=== PATIENT | male | born 1955 | race Caucasian/White ===

== ENCOUNTER 2017-11-16 00:57 | Inpatient (IN) ==
[2017-11-16] MEDS ORDERED: predniSONE 20 MG TABLET PO ONE (01:33)
[2017-11-16] MEDS ORDERED: Ipratropium/Albuterol Neb 3 ML IH ONE (01:34)
[2017-11-16] MEDS ORDERED: Azithromycin 250 MG TABLET PO ONE (01:35)
[2017-11-16 01:58] LABS: Basophils # 0.1 K/mcL (0.0-0.2); Basophils % 0.7 %; Eosinophils # 0.2 K/mcL (0.0-0.6); Eosinophils % 1.7 %; Hematocrit 43.5 % (37.5-50.1); Hemoglobin 14.7 g/dL (12.9-16.9); Immature Granulocytes % 0.4 % (0-4); Lymphocytes # 1.1 K/mcL (0.6-4.6); Lymphocytes % 8.7 %; Mean Corpuscular HGB Conc 33.8 g/dL (31.6-35.5); Mean Corpuscular Hemoglobin 31.9 pg (28.0-33.3); Mean Corpuscular Volume 94.4 fL (83.0-100.0); Mean Platelet Volume 10.1 fL (9.4-12.4); Monocytes # 1.3 K/mcL (0.0-1.3); Neutrophils # 9.5 K/mcL (1.6-8.9); Platelet Count 221 K/mcL (140-400); Red Blood Count 4.61 M/mcL (4.19-5.50); Red Cell Distribution Width 12.5 % (11.5-14.5); Segmented Neutrophils % 77.5 %
--- NOTE | 2017-11-16 01:58 | Emergency Department Note ---
Disposition Clinical Impression: Acute exacerbation of chronic obstructive airways disease Disposition: Admitted As Inpatient Condition: Good Time of Disposition: 03:05 SOB [facility] - General Chief Complaint: ED Shortness of Breath/Dyspnea Stated Complaint: Dyspnea Time Seen by Provider: 11/16/17 01:08 Source: patient Limitations: no limitations Nursing Notes Reviewed: Yes Vital Signs Reviewed: Yes - History of Present Illness 62-year-old male presents to the emergency department complaining of shortness of breath. Patient does have history of COPD he says he has had a cough and shortness of breath recently. Patient states he has had no fevers or nausea or vomiting. He said he has had no purulent sputum. He patient states he does not use any oxygen has inhalers at home does not have any nebulizers has never had to be intubated for COPD. patient is not having any other complaints including headache, neck pain, blurry vision, back pain, chest pain, abdominal pain, pain with urination, changes in bowel movements, pain or tenderness in the arms or legs, generalized weakness, fevers, nausea or vomiting. - Related Data Previous Rx's Medication Instructions Recorded Docusate [Colace] 100 mg PO BID PRN #20 capsule 12/24/15 OxyCODONE/APAP 5/325 [Percocet 1 each PO Q6HR PRN #30 tablet 12/24/15 5/325 MG] Albuterol Sulfate [Albuterol 2 puff IH Q4HR #1 hfa.aer.ad 01/21/17 Inhaler] Azithromycin [Zithromax] 250 mg PO DAILY #4 tablet 11/16/17 predniSONE [Prednisone] 50 mg PO DAILY #5 tablet 11/16/17 Allergies Allergy/AdvReac Type Severity Reaction Status Date / Time No Known Allergies Allergy Verified 11/16/17 00:58 Review of Systems: 10 point review of systems done and negative unless otherwise stated in history of present illness. All systems ED: reviewed and negative except as stated. Review of Systems: As Per [facility] Past Medical History - Past Medical History Attestation: Yes The following information was validated with the patient. Medical history: Reports: no medical history Surgical history: Reports: other Psychiatric history: Reports: no psych history - Social History Smoking Status: Current every day smoker Smokeless Tobacco Status: No Alcohol use: Reports: none Drug use: Reports: none Physical Exam - General Limitations: no limitations General appearance: alert, in no apparent distress - Head Head exam: atraumatic, normocephalic, normal inspection - Eye Eye exam: Present: normal appearance, PERRL, EOMI - ENT ENT exam: normal exam, normal oropharynx, mucous membranes moist - Neck Neck exam: Present: normal inspection, full ROM, trachea midline - Chest Chest inspection: Present: normal inspection, symmetric chest wall rise - Respiratory Respiratory exam: Present: wheezes. Absent: respiratory distress, stridor, accessory muscle use - Cardiovascular Cardiovascular exam: Present: regular rate, normal rhythm, normal heart sounds - Abdominal Exam Abdominal exam: Present: soft, Non-Tender. Absent: tenderness, distention, guarding, rebound, rigidity - Extremities Exam Extremities exam: Present: normal inspection, full ROM, normal capillary refill. Absent: tenderness, pedal edema - Expanded Lower Extremity Exam Neurovascular/Tendon exam: Present: normal capillary refill. Absent: pulse deficit, motor deficit, sensory deficit, tendon deficit - Back Exam Back exam: Present: normal inspection, full ROM. Absent: tenderness, CVA tenderness (R), CVA tenderness (L) - Neurological Exam Neurological exam: Present: alert, oriented X3 - Skin Skin exam: Present: warm, dry, intact, normal color Course Course Narrative: 62-year-old male presents to the ED with difficulty breathing does not history of COPD feels a tightening exacerbation. We will give patient by mouth steroids , azithromycin, triple DuoNeb treatment will get chest x-ray and basic labs. Patient took it this plan. Most likely disposition will be home with steroids and azithromycin. Vital Signs Temperature 97.5 F L 11/16/17 00:59 Pulse Rate 85 11/16/17 00:59 Respiratory Rate 18 11/16/17 00:59 Blood Pressure 119/69 11/16/17 00:59 O2 Sat by Pulse Oximetry 92 11/16/17 00:59 Temperature 97.5 F L 11/16/17 00:59 Pulse Rate 81 11/16/17 03:37 Respiratory Rate 16 11/16/17 03:37 Blood Pressure 104/67 11/16/17 03:37 O2 Sat by Pulse Oximetry 84 11/16/17 03:37 Oxygen Delivery Oxygen Delivery Room Air Shortness of Breath/Dyspnea - [facility] Narrative Medical decision making narrative: 62-year-old male presenting to the emergency department complaining of shortness of breath. He does a history of COPD. After listening to him he did have wheezes bilaterally. We ordered triple duo nebs as well as oral steroids and did give him azithromycin. Patient did have normal labs are no acute findings with those. He also had a normal EKG. Patient also had no acute findings on his chest x-ray. Patient did sound much better after these treatments. Patient was likely is a viral infection exacerbating his COPD. He does have albuterol inhalers at home. Recommend he does use these more often to help with his breathing. Also send him home on 5 days of oral steroid treatment. We will also send him home on azithromycin for 5 days. When he went to discharge the patient we did do a walk test and he dropped to 85 % on room air while walking which is abnormal for him due to the hypoxia we are going to admit to the hospitalist service for COPD exacerbation. As well as hypoxia. I spoke with Dr. Bowen who agreed to admit the patient to their service. Patient is now admitted to the hospitalist service in stable condition. Chest X-Ray 11/16/17 01:19 IMPRESSION: No radiographic evidence of acute cardiopulmonary disease. D/ / Molina Duran / Molina Duran Interpreting Provider: Molina Duran - Medical Records Medical records reviewed: Yes I reviewed the patient's medical records. - Lab Data Lab results reviewed: Yes I reviewed the patient's lab results. Result diagrams: 11/16/17 01:30 11/16/17 01:47 Lab Results 11/16/17 11/16/17 11/16/17 Range/Units 01:30 01:47 01:47 WBC 12.2 H (4.3-11.1) K/mcL RBC 4.61 (4.19-5.50) M/mcL Hgb 14.7 (12.9-16.9) g/dL Hct 43.5 (37.5-50.1) % MCV 94.4 (83.0-100.0) fL MCH 31.9 (28.0-33.3) pg MCHC 33.8 (31.6-35.5) g/dL RDW 12.5 (11.5-14.5) % Plt Count 221 (140-400) K/mcL MPV 10.1 (9.4-12.4) fL Immature Gran % 0.4 (0-4) % Seg Neutrophils % 77.5 % Lymphocytes % 8.7 % Monocytes % 11.0 % Eosinophils % 1.7 % Basophils % 0.7 % Neutrophils # 9.5 H (1.6-8.9) K/mcL Lymphocytes # 1.1 (0.6-4.6) K/mcL Monocytes # 1.3 (0.0-1.3) K/mcL Eosinophils # 0.2 (0.0-0.6) K/mcL Basophils # 0.1 (0.0-0.2) K/mcL Sodium 141 (136-145) mEq/L Potassium 4.1 (3.5-4.5) mEq/L Chloride 106 (98-109) mEq/L Carbon Dioxide 23 (19-29) mEq/L BUN 14 (8-26) mg/dL Creatinine 1.07 (0.72-1.25) mg/dL Est GFR ( Amer) > 60 (> 60) Est GFR (Non-Af Amer) > 60 (> 60) BUN/Creatinine Ratio 13 (6-26) Glucose 107 H (70-99) mg/dL Calculated Osmolality 293 (280-300) Calcium 9.3 (8.6-10.8) mg/dL Troponin I 0.00 (0-0.03) ng/mL B-Natriuretic Peptide (0-100) pg/mL 11/16/17 Range/Units 01:47 WBC (4.3-11.1) K/mcL RBC (4.19-5.50) M/mcL Hgb (12.9-16.9) g/dL Hct (37.5-50.1) % MCV (83.0-100.0) fL MCH (28.0-33.3) pg MCHC (31.6-35.5) g/dL RDW (11.5-14.5) % Plt Count (140-400) K/mcL MPV (9.4-12.4) fL Immature Gran % (0-4) % Seg Neutrophils % % Lymphocytes % % Monocytes % % Eosinophils % % Basophils % % Neutrophils # (1.6-8.9) K/mcL Lymphocytes # (0.6-4.6) K/mcL Monocytes # (0.0-1.3) K/mcL Eosinophils # (0.0-0.6) K/mcL Basophils # (0.0-0.2) K/mcL Sodium (136-145) mEq/L Potassium (3.5-4.5) mEq/L Chloride (98-109) mEq/L Carbon Dioxide (19-29) mEq/L BUN (8-26) mg/dL Creatinine (0.72-1.25) mg/dL Est GFR ( Amer) (> 60) Est GFR (Non-Af Amer) (> 60) BUN/Creatinine Ratio (6-26) Glucose (70-99) mg/dL Calculated Osmolality (280-300) Calcium (8.6-10.8) mg/dL Troponin I (0-0.03) ng/mL B-Natriuretic Peptide 53 (0-100) pg/mL - Radiology Data Radiology results reviewed: Yes I reviewed the patient's radiology results. - EKG Data EKG attestation: Yes I reviewed and interpreted this EKG. EKG results narrative: EKG done at 0104 view myself and attending shows normal sinus rhythm at a rate of 85, NV interval 151, QRS 90, QTC 386 with a normal axis. There is no acute ST changes, no acute T-wave abnormalities, no signs of any heart strain or hypertrophy, no signs of heart block, no signs of WPW/Brugada syndrome. There is no changes based on old EKG done 01/21/17. Attestation Statement - Attestation Attestation: I examined this patient and my medical decision-making was reviewed with the Resident Physician. I agree with the documented findings, disposition and treatment plan as described except to the extent set forth below. Findings consistent with hypoxia and dyspnea. Suspect COPD exacerbation. Bronchodilators, steroids, antibiotics. The patient had ongoing hypoxia. Plan to admit to the hospital for further evaluation. I spent greater than 35 minutes of critical care time resuscitating this acutely ill patient suffering from hypoxia. This was excluding billable procedures.
[2017-11-16 02:11] LABS: BUN/Creatinine Ratio 13 (6-26); Blood Urea Nitrogen 14 mg/dL (8-26); Calcium 9.3 mg/dL (8.6-10.8); Carbon Dioxide 23 mEq/L (19-29); Chloride 106 mEq/L (98-109); Glucose 107 mg/dL (70-99); Osmolality,Calculated 293 (280-300); Potassium 4.1 mEq/L (3.5-4.5); Sodium 141 mEq/L (136-145); eGFR For African Americans > 60 (> 60); eGFR For Non-African Americans > 60 (> 60)
[2017-11-16] MEDS ORDERED: Ipratropium/Albuterol Neb 3 ML IH PRN (03:51)
[2017-11-16] MEDS ORDERED: Naloxone 0.4 MG/ML INJ IVP PRN (03:52)
--- NOTE | 2017-11-16 04:05 | Internal Med History&Physical ---
Date of Encounter: 11/16/17 Time of Encounter: 04:04 Assessment and Plan (1) Acute exacerbation of chronic obstructive airways disease Current visit: Yes Status: Acute IV steroids, duonebs, IV azithro send RVP pulse ox (2) Tobacco abuse Current visit: Yes Status: Acute declined patch Internal Medicine - H&P: HPI Chief complaint: SOB History of present illness: Mr. Hackett is a 62 year old male with hx of COPD who presents with COPD exacerbation He reported subacute symptoms of cough , productive of green sputum, for the last 2-3 weeks that got worse. Now associated with SOB and worsening MCCLURE around the house. Gets winded very easily. He smokes 1 PPD for many years now. Subjects low grade fever/chills. At baseline he is on room air. Tonight he desaturated to mid 80s on RA while ambulating XR/XR chest 1V portable IMPRESSION: No radiographic evidence of acute cardiopulmonary disease. Past Med Surg Social Fam HX - Past Medical History Medical history: no medical history Psychiatric history: no psych history - Past Surgical History Surgical History: other - Social History Smoking Status: Current every day smoker Smokeless Tobacco Status: No Alcohol use: none Drug use: none - Family History Maternal Grandmother Hx Family Endocrine Disorder: Yes (Diabetes) Internal Medicine - H&P: Meds Docusate [Colace] 100 mg PO BID PRN #20 capsule 12/24/15 [Rx] OxyCODONE/APAP 5/325 [Percocet 5/325 MG] 1 each PO Q6HR PRN #30 tablet 12/24/15 [Rx] Albuterol Sulfate [Albuterol Inhaler] 2 puff IH Q4HR #1 hfa.aer.ad 01/21/17 [Rx] Azithromycin [Zithromax] 250 mg PO DAILY #4 tablet 11/16/17 [Rx] predniSONE [Prednisone] 50 mg PO DAILY #5 tablet 11/16/17 [Rx] 3 Allergy/AdvReac Type Severity Reaction Status Date / Time No Known Allergies Allergy Verified 11/16/17 00:58 All Systems PM: A 10-system review of systems was performed and is negative for pertinent findings except as documented above in the HPI. Review of systems: ROS 14 point review of systems reviewed as best as possible given presentation. Pertinent positive or negative as per HPI or otherwise reviewed as negative - Constitutional Vitals: Temp Pulse Resp BP Pulse Ox 97.5 F L 81 16 104/67 84 11/16/17 00:59 11/16/17 03:37 11/16/17 03:37 11/16/17 03:37 11/16/17 03:37 Exam: General - AAO x 3 Psych - Appropriate affect/speech. No agitation Eyes - BONNY. Eye lids intact. No scleral icterus Heart - Sinus. RRR. S1 and S2 present. No added HS/murmurs appreciated. No elevated JVD appreciated. Lung - Adequate air entry b/l, Diffuse wheeze appreciated GI - Soft, non-tender. No hepatosplenomegaly/ascites. BS+ - No CVA/suprapubic tenderness or palpable bladder distension Skin - Intact. No rash/petechiae/ecchymosis. Warm extremities MSK - Joints with normal ROM. No joint swellings Internal Med - H&P Results - Labs CBC & Chem 7: 11/16/17 01:30 11/16/17 01:47
[2017-11-16] MEDS: Ipratropium/Albuterol Neb 3 ML IH SCH ×4 (04:54→22:27)
[2017-11-16] MEDS: *HR* Enoxaparin 40 MG/0.4 ML SYRINGE SQ SCH (05:05)
[2017-11-16] MEDS: MethylPREDNISolone 40 MG/ML VIAL IVP SCH ×4 (05:06→23:53)
--- NOTE | 2017-11-16 10:45 | Internal Med Progress Note ---
<Alex Griffin - Last Filed: 11/16/17 10:42> Date of Encounter: 11/16/17 Time of Encounter: 10:30 - Assessment and plan (1) Acute exacerbation of chronic obstructive airways disease Current Visit: Yes Status: Acute Assessment and plan: Patient presented to hospital with increased shortness of breath for 2-3 weeks. States this occurred one year ago. Patient on Solu-Medrol 40 mg IV every 4 hours, hold to taper as patient improves Patient on azithromycin day 2 Continue breathing treatments Continue continuous pulse oximetry (2) Tobacco abuse Current Visit: Yes Status: Acute Assessment and plan: Tobacco use and abuse discussed with patient, recommend smoking cessation and discussed with patient. Patient denies need nicotine patch at the moment. (3) DVT prophylaxis Current Visit: Yes Status: Acute Assessment and plan: Encourage ambulation Lovenox subcutaneous - Subjective Interval history: Patient reports having some improvement in his shortness of breath and cough since admission. He still does have coughis dry at this point. He does still have some problems breathing, but says it is much improved from admission. He denies any fever/chills, denies pleuritic chest pain, denies chest pain, denies sore throat, denies pain sinuses. - Constitutional Vitals: Temp Pulse Resp BP Pulse Ox 98.5 F 60 16 104/60 91 11/16/17 07:17 11/16/17 07:17 11/16/17 10:15 11/16/17 07:17 11/16/17 10:15 Exam: General: Cooperative, pleasant, no acute distress, alert and oriented 3, answers questions appropriately HEENT: Normocephalic, atraumatic, neck supple, trachea midline, Conjunctiva pink , sclera anicteric Respiratory: No accessory muscle usage, clear to auscultation bilaterally, diffuse wheezing present on auscultation Cardiovascular: Regular rate and rhythm, S1 and S2 present, no murmurs/rubs/ gallops/clicks appreciated GI/abdominal: Nondistended, nontender, soft, normal bowel sounds, no peritoneal signs Extremities: No calf tenderness, noncyanotic, no pedal edema appreciated, warm, lower extremity pulses palpable and symmetrical Neurological: Alert and oriented 3, no facial droop, no focal deficits Skin: Dry, intact, normal color Internal Medicine: Result - Labs CBC & Chem 7: 11/16/17 01:30 11/16/17 01:47 Consult Discharge Plan - Plan Referrals: Ella Hackett, CHIEF TELEPHONE OPERATOR [Primary Care Provider] - <Amaury Bae - Last Filed: 11/16/17 11:04> Date of Encounter: 11/16/17 - Constitutional Vitals: Temp Pulse Resp BP Pulse Ox 98.0 F 67 16 106/57 90 11/16/17 10:54 11/16/17 10:54 11/16/17 10:54 11/16/17 10:54 11/16/17 10:54 Internal Medicine: Result - Labs CBC & Chem 7: 11/16/17 01:30 11/16/17 01:47 - Attending Attestation Acute COPD exacerbation likely secondary to bacterial bronchitis Continue azithromycin and Solu-Medrol Will require PFTs in 6 weeks Continue oxygen therapy Quit smoking, smoking cessation counseling given for 5 minutes, nicotine patch I examined this patient and my medical decision-making was reviewed with the Resident Physician. I agree with the documented findings, disposition and treatment plan as described except to the extent set forth below.
[2017-11-17 03:39] LABS: Basophils % 0.1 %; Hematocrit 42.1 % (37.5-50.1); Hemoglobin 14.2 g/dL (12.9-16.9); Immature Granulocytes % 0.7 % (0-4); Lymphocytes # 0.7 K/mcL (0.6-4.6); Lymphocytes % 4.5 %; Mean Corpuscular HGB Conc 33.7 g/dL (31.6-35.5); Mean Corpuscular Hemoglobin 32.4 pg (28.0-33.3); Mean Corpuscular Volume 96.1 fL (83.0-100.0); Mean Platelet Volume 10.5 fL (9.4-12.4); Monocytes # 1.1 K/mcL (0.0-1.3); Monocytes % 6.5 %; Neutrophils # 14.3 K/mcL (1.6-8.9); Platelet Count 227 K/mcL (140-400); Red Blood Count 4.38 M/mcL (4.19-5.50); Red Cell Distribution Width 12.4 % (11.5-14.5); Segmented Neutrophils % 88.2 %
[2017-11-17] MEDS: Azithromycin 500 MG in D5% in Water 250 ML IVPB SCH (04:08)
[2017-11-17] MEDS: Ipratropium/Albuterol Neb 3 ML IH SCH ×4 (04:18→23:10)
[2017-11-17] MEDS: *HR* Enoxaparin 40 MG/0.4 ML SYRINGE SQ SCH (06:06)
[2017-11-17] MEDS: MethylPREDNISolone 40 MG/ML VIAL IVP SCH ×2 (06:07→15:54)
[2017-11-17 08:06] LABS: BUN/Creatinine Ratio 17 (6-26); Blood Urea Nitrogen 15 mg/dL (8-26); Calcium 9.2 mg/dL (8.6-10.8); Carbon Dioxide 25 mEq/L (19-29); Chloride 107 mEq/L (98-109); Glucose 145 mg/dL (70-99); Magnesium 2.1 mg/dL (1.6-2.6); Osmolality,Calculated 295 (280-300); Phosphorous 2.6 mg/dL (2.3-4.7); Potassium 4.6 mEq/L (3.5-4.5); Sodium 141 mEq/L (136-145); eGFR For African Americans > 60 (> 60); eGFR For Non-African Americans > 60 (> 60)
--- NOTE | 2017-11-17 11:46 | Electrocardiograph Report ---
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
[2017-11-17] MEDS ORDERED: Pantoprazole 40 MG VIAL IVP SCH (12:15)
--- NOTE | 2017-11-17 12:24 | Internal Med Progress Note ---
Date of Encounter: 11/17/17 Time of Encounter: 12:05 - Assessment and plan (1) Acute exacerbation of chronic obstructive airways disease Current Visit: Yes Status: Acute Assessment and plan: Continue IV steroids 40mg q8h continue azithromycin added Guaifenesin/dextromorphan prn monitor O2 sat, goal O2 sat: 88-92% O2 supplementation pt will benefit from outpt pulmonary follow up and pulmonary function testing (2) Epigastric discomfort Current Visit: Yes Status: Acute Assessment and plan: Started on Protonix 40mg IV qd will closely monitor (3) Tobacco abuse Current Visit: Yes Status: Acute Assessment and plan: Smoking cessation counseling provided pt refused nicotine supplementation (4) DVT prophylaxis Current Visit: Yes Status: Acute Assessment and plan: Encourage ambulation Lovenox subcutaneous - Subjective Interval history: Patient seen and examined at bedside. remains O2 dependent and reports of not being on home oxygen. noted to have b/l expiratory wheezing and states he is coughing but having a difficult time bringing up anything. Also reports of epigastric discomfort. EKG showed NSR pt reports of smoking more than 1ppd x 40+ years (started at the age of 15) - Constitutional Vitals: Temp Pulse Resp BP Pulse Ox 98.3 F 67 18 113/56 92 11/17/17 11:02 11/17/17 11:02 11/17/17 11:02 11/17/17 11:02 11/17/17 11:02 General appearance: Present: A&O X 3, no acute distress, answers questions appropriately - Head Head exam: Present: atraumatic, normocephalic - Eye Eye exam: Present: conjuntiva pink, sclera anicteric - Respiratory Respiratory exam: Present: wheezes (b/l expiratory wheezing). Absent: rales, respiratory distress - Cardiovascular Cardiovascular exam: Present: RRR, +S1, +S2. Absent: diastolic murmur, gallop, rubs, systolic murmur - GI/Abdominal GI/Abdominal exam: Present: normal bowel sounds, soft, no peritoneal signs. Absent: distended, tenderness - Extremities Exam Extremities exam: Present: warm, radial pulses palpable and symmetrical. Absent : calf tenderness, cyanotic, pedal edema - Neurological Exam Neurological exam: Present: alert, oriented X3 - Psychiatric Psychiatric exam: Present: normal affect, normal mood Internal Medicine: Result - Labs CBC & Chem 7: 11/17/17 02:58 11/17/17 07:45 Labs: Short CBC 11/17/17 Range/Units 02:58 WBC 16.3 H (4.3-11.1) K/mcL Hgb 14.2 (12.9-16.9) g/dL Hct 42.1 (37.5-50.1) % Plt Count 227 (140-400) K/mcL Neutrophils # 14.3 H (1.6-8.9) K/mcL BMP 11/17/17 07:45 Sodium 141 Potassium 4.6 H Chloride 107 Carbon Dioxide 25 BUN 15 Creatinine 0.90 Glucose 145 H Calcium 9.2 Consult Discharge Plan - Plan Referrals: Ella Hackett, COMPUTER SECURITY SPECIALIST [Primary Care Provider] - 12/03/17 9:50 am
[2017-11-17 18:11] LABS: Adenovirus Not Detected (Not Detect); Bordetella Pertussis Not Detected (Not Detect); Chlamydophila pneumoniae Not Detected (Not Detect); Coronavirus 229E Not Detected (Not Detect); Coronavirus HKU1 Not Detected (Not Detect); Coronavirus NL63 Not Detected (Not Detect); Coronavirus OC43 Not Detected (Not Detect); Human Metapneumovirus Not Detected (Not Detect); Human Rhinovirus/Enterovirus ***DETECTED*** (Not Detect); Influenza A Subtype 2009 H1 Not Detected (Not Detect); Influenza A Untypeable Not Detected (Not Detect); Influenza B Not Detected (Not Detect); Mycoplasma pneumoniae Not Detected (Not Detect); Parainfluenza Virus 1 Not Detected (Not Detect); Parainfluenza Virus 2 Not Detected (Not Detect); Parainfluenza Virus 3 Not Detected (Not Detect); Parainfluenza Virus 4 Not Detected (Not Detect); Respiratory Syncytial Virus Not Detected (Not Detect)
[2017-11-18] MEDS: MethylPREDNISolone 40 MG/ML VIAL IVP SCH ×3 (00:35→17:32)
[2017-11-18] MEDS: Azithromycin 500 MG in D5% in Water 250 ML IVPB SCH (03:21)
[2017-11-18 05:01] LABS: Basophils % 0.1 %; Hematocrit 41.4 % (37.5-50.1); Hemoglobin 13.6 g/dL (12.9-16.9); Immature Granulocytes % 0.9 % (0-4); Lymphocytes # 0.8 K/mcL (0.6-4.6); Lymphocytes % 5.9 %; Mean Corpuscular HGB Conc 32.9 g/dL (31.6-35.5); Mean Corpuscular Hemoglobin 31.9 pg (28.0-33.3); Mean Platelet Volume 10.3 fL (9.4-12.4); Monocytes # 0.6 K/mcL (0.0-1.3); Monocytes % 4.4 %; Neutrophils # 12.1 K/mcL (1.6-8.9); Platelet Count 215 K/mcL (140-400); Red Blood Count 4.27 M/mcL (4.19-5.50); Red Cell Distribution Width 12.8 % (11.5-14.5); Segmented Neutrophils % 88.7 %
[2017-11-18] MEDS: *HR* Enoxaparin 40 MG/0.4 ML SYRINGE SQ SCH (05:04)
[2017-11-18] MEDS: Ipratropium/Albuterol Neb 3 ML IH SCH ×4 (05:17→23:19)
[2017-11-18 05:27] LABS: BUN/Creatinine Ratio 20 (6-26); Blood Urea Nitrogen 18 mg/dL (8-23); Calcium 8.8 mg/dL (8.6-10.3); Carbon Dioxide 27 mEq/L (23-29); Chloride 107 mEq/L (98-107); Glucose 164 mg/dL (70-105); Magnesium 2.3 mg/dL (1.6-2.6); Osmolality,Calculated 294 (280-300); Phosphorous 2.9 mg/dL (2.7-4.5); Potassium 4.4 mEq/L (3.5-5.1); Sodium 139 mEq/L (136-145); eGFR For African Americans > 60 (> 60); eGFR For Non-African Americans > 60 (> 60)
[2017-11-18] MEDS: Doxycycline 100 MG in 0.9 % Sodium Chloride Mini Bag 100 ML IVPB SCH ×2 (10:01→18:42)
--- NOTE | 2017-11-18 10:20 | Internal Med Progress Note ---
Date of Encounter: 11/18/17 Time of Encounter: 09:30 - Assessment and plan (1) Atypical pneumonia Current Visit: Yes Status: Acute Assessment and plan: COPD exacerbation secondary to atypical viral PNA serologies positive for Entero/Rhino virus d/c azithromycin and start Doxycycline 100mg IV q12h continue IV steroids O2 supplementation monitor O2 sat, goal O2 sat: 88-92% bronchodilator support pt will need outpatient pulm follow up with Pulmonary function testing and repeat CT chest will obtain O2 qualification test in am (2) Acute exacerbation of chronic obstructive airways disease Current Visit: Yes Status: Acute Assessment and plan: as listed above (3) Epigastric discomfort Current Visit: Yes Status: Acute Assessment and plan: Improved from previous day Protonix 40mg IV qd will closely monitor (4) Tobacco abuse Current Visit: Yes Status: Acute Assessment and plan: Smoking cessation counseling provided pt refused nicotine supplementation (5) DVT prophylaxis Current Visit: Yes Status: Acute Assessment and plan: Encourage ambulation Lovenox subcutaneous - Subjective Interval history: Patient seen and examined at bedside. Resting in bed and saturating well on 2L NC improved from previous day. CT chest findings consistent with chronic emphysematous changes along with atypical pneumonia. RSV/Enterovirus positive I spoke with film projector operator who will see the patient in his clinic and to continue the patient on IV steroids followed by long steroid taper. Abx switched to Doxycycline Repeat CT chest recommended in 6-8 weeks pt reports of smoking more than 1ppd x 40+ years (started at the age of 15) - Constitutional Vitals: Temp Pulse Resp BP Pulse Ox 98.2 F 71 17 134/63 92 11/18/17 07:57 11/18/17 07:57 11/18/17 07:57 11/18/17 07:57 11/18/17 07:57 General appearance: Present: A&O X 3, no acute distress, answers questions appropriately - Head Head exam: Present: atraumatic, normocephalic - Eye Eye exam: Present: conjuntiva pink, sclera anicteric - Respiratory Respiratory exam: Present: decreased breath sounds (coarse breath sounds ). Absent: respiratory distress, wheezes - Cardiovascular Cardiovascular exam: Present: RRR, +S1, +S2. Absent: diastolic murmur, gallop, rubs, systolic murmur - GI/Abdominal GI/Abdominal exam: Present: normal bowel sounds, soft, no peritoneal signs. Absent: distended, tenderness - Extremities Exam Extremities exam: Present: warm, radial pulses palpable and symmetrical. Absent : calf tenderness, cyanotic, pedal edema - Neurological Exam Neurological exam: Present: alert, oriented X3 - Psychiatric Psychiatric exam: Present: normal affect, normal mood Internal Medicine: Result - Labs CBC & Chem 7: 11/18/17 04:15 11/18/17 04:15 Labs: Short CBC 11/18/17 Range/Units 04:15 WBC 13.7 H (4.3-11.1) K/mcL Hgb 13.6 (12.9-16.9) g/dL Hct 41.4 (37.5-50.1) % Plt Count 215 (140-400) K/mcL Neutrophils # 12.1 H (1.6-8.9) K/mcL BMP 11/18/17 04:15 Sodium 139 Potassium 4.4 Chloride 107 Carbon Dioxide 27 BUN 18 Creatinine 0.91 Glucose 164 H Calcium 8.8 - Impressions Impressions Chest CT 11/17/17 14:24 IMPRESSION: Multifocal, patchy areas of alveolar ground-glass opacity. Given the patient's history, these are most consistent with infectious or inflammatory pneumonia/pneumonitis. Nonetheless, these do need to be followed to resolution to ensure there is no underlying low grade neoplasm. Because they are radiographically occult, follow-up with chest CT will be necessary, and should be performed in approximately 6-8 weeks after treatment. D/ / Rishi De Souza MD / Rishi De Souza MD Interpreting Provider: Rishi De Souza MD Consult Discharge Plan - Plan Referrals: Ella Hackett, BINDERY CHIEF [Primary Care Provider] - 12/03/17 9:50 am
--- NOTE | 2017-11-18 18:44 | Electrocardiograph Report ---
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
[2017-11-19] MEDS: MethylPREDNISolone 40 MG/ML VIAL IVP SCH ×3 (00:37→23:58)
[2017-11-19 03:48] LABS: Basophils % 0.3 %; Hemoglobin 13.5 g/dL (12.9-16.9); Immature Platelets 3.5 % (1.1-6.1); Lymphocytes % 8.4 %; Mean Corpuscular HGB Conc 32.9 g/dL (31.6-35.5); Mean Corpuscular Hemoglobin 31.8 pg (28.0-33.3); Mean Corpuscular Volume 96.7 fL (83.0-100.0); Mean Platelet Volume 10.3 fL (9.4-12.4); Monocytes # 0.7 K/mcL (0.0-1.3); Neutrophils # 9.4 K/mcL (1.6-8.9); Platelet Count 251 K/mcL (140-400); Red Blood Count 4.24 M/mcL (4.19-5.50); Red Cell Distribution Width 12.8 % (11.5-14.5); Segmented Neutrophils % 83.3 %
[2017-11-19] MEDS: Ipratropium/Albuterol Neb 3 ML IH SCH ×4 (04:06→22:25)
[2017-11-19 04:12] LABS: BUN/Creatinine Ratio 19 (6-26); Blood Urea Nitrogen 17 mg/dL (8-23); Calcium 8.7 mg/dL (8.6-10.3); Carbon Dioxide 27 mEq/L (23-29); Chloride 107 mEq/L (98-107); Glucose 136 mg/dL (70-105); Magnesium 2.1 mg/dL (1.6-2.6); Osmolality,Calculated 300 (280-300); Phosphorous 3.1 mg/dL (2.7-4.5); Potassium 4.5 mEq/L (3.5-5.1); Sodium 143 mEq/L (136-145); eGFR For African Americans > 60 (> 60); eGFR For Non-African Americans > 60 (> 60)
[2017-11-19] MEDS: *HR* Enoxaparin 40 MG/0.4 ML SYRINGE SQ SCH (06:01)
[2017-11-19] MEDS: Doxycycline 100 MG in 0.9 % Sodium Chloride Mini Bag 100 ML IVPB SCH ×2 (06:01→18:24)
[2017-11-19] MEDS ORDERED: 0.9 % Sodium Chloride 2,000 ML ONE (07:03)
--- NOTE | 2017-11-19 12:35 | Internal Med Progress Note ---
Date of Encounter: 11/19/17 Time of Encounter: 12:10 - Assessment and plan (1) Atypical pneumonia Current Visit: Yes Status: Acute Assessment and plan: COPD exacerbation secondary to atypical viral PNA serologies positive for Entero/Rhino virus continue Doxycycline 100mg IV q12h continue IV steroids (changed to Solumedrol 40mg IV q12h), will switch to PO prednisone in am O2 supplementation monitor O2 sat, goal O2 sat: 88-92% bronchodilator support pt will need outpatient pulm follow up with Pulmonary function testing and repeat CT chest will obtain O2 qualification test (2) Acute exacerbation of chronic obstructive airways disease Current Visit: Yes Status: Acute Assessment and plan: as listed above (3) Epigastric discomfort Current Visit: Yes Status: Resolved Assessment and plan: Improved from previous day Protonix 40mg IV qd will closely monitor (4) Tobacco abuse Current Visit: Yes Status: Acute Assessment and plan: Smoking cessation counseling provided pt refused nicotine supplementation (5) DVT prophylaxis Current Visit: Yes Status: Acute Assessment and plan: Encourage ambulation Lovenox subcutaneous - Subjective Interval history: Patient seen and examined at bedside. Resting in bed and saturating 92% on room air Pt reports of feeling better compared to previous day will obtain 6 minute walk test for home O2 qualification changed solumedrol to 40mg IV q12h, will switch to PO steroids in am and tentative discharge if continues to clinically improve Pt will be discharged on long steroid taper, with follow up with pulm - Constitutional Vitals: Temp Pulse Resp BP Pulse Ox 97.7 F 69 16 153/81 92 11/19/17 10:59 11/19/17 10:59 11/19/17 11:11 11/19/17 10:59 11/19/17 11:11 General appearance: Present: A&O X 3, no acute distress, answers questions appropriately - Head Head exam: Present: atraumatic, normocephalic - Eye Eye exam: Present: conjuntiva pink, sclera anicteric - Respiratory Respiratory exam: Present: wheezes (b/l expiratory wheezing, equal air entry bilaterally). Absent: accessory muscle use, respiratory distress, tachypnea - Cardiovascular Cardiovascular exam: Present: RRR, +S1, +S2. Absent: diastolic murmur, gallop, rubs, systolic murmur - GI/Abdominal GI/Abdominal exam: Present: normal bowel sounds, soft, no peritoneal signs. Absent: distended, tenderness - Extremities Exam Extremities exam: Present: warm, radial pulses palpable and symmetrical. Absent : calf tenderness, cyanotic, pedal edema - Neurological Exam Neurological exam: Present: alert, oriented X3 - Psychiatric Psychiatric exam: Present: normal affect, normal mood Internal Medicine: Result - Labs CBC & Chem 7: 11/19/17 03:33 11/19/17 03:33 Labs: Short CBC 11/19/17 Range/Units 03:33 WBC 11.3 H (4.3-11.1) K/mcL Hgb 13.5 (12.9-16.9) g/dL Hct 41.0 (37.5-50.1) % Plt Count 251 (140-400) K/mcL Neutrophils # 9.4 H (1.6-8.9) K/mcL BMP 11/19/17 03:33 Sodium 143 Potassium 4.5 Chloride 107 Carbon Dioxide 27 BUN 17 Creatinine 0.88 Glucose 136 H Calcium 8.7 Consult Discharge Plan - Plan Referrals: Ella Hackett CNP [Primary Care Provider] - 12/03/17 9:50 am
[2017-11-20] MEDS: Ipratropium/Albuterol Neb 3 ML IH SCH ×2 (04:41→09:47)
[2017-11-20 04:58] LABS: BUN/Creatinine Ratio 21 (6-26); Blood Urea Nitrogen 18 mg/dL (8-23); Calcium 8.9 mg/dL (8.6-10.3); Carbon Dioxide 28 mEq/L (23-29); Chloride 105 mEq/L (98-107); Glucose 125 mg/dL (70-105); Magnesium 2.2 mg/dL (1.6-2.6); Osmolality,Calculated 291 (280-300); Phosphorous 3.6 mg/dL (2.7-4.5); Potassium 4.4 mEq/L (3.5-5.1); Sodium 139 mEq/L (136-145); eGFR For African Americans > 60 (> 60); eGFR For Non-African Americans > 60 (> 60)
[2017-11-20 05:06] LABS: Basophils # 0.1 K/mcL (0.0-0.2); Basophils % 0.6 %; Hematocrit 41.9 % (37.5-50.1); Hemoglobin 13.8 g/dL (12.9-16.9); Immature Granulocytes % 2.7 % (0-4); Lymphocytes # 1.3 K/mcL (0.6-4.6); Lymphocytes % 12.5 %; Mean Corpuscular HGB Conc 32.9 g/dL (31.6-35.5); Mean Corpuscular Hemoglobin 31.8 pg (28.0-33.3); Mean Corpuscular Volume 96.5 fL (83.0-100.0); Monocytes # 0.6 K/mcL (0.0-1.3); Monocytes % 5.6 %; Neutrophils # 7.9 K/mcL (1.6-8.9); Platelet Count 242 K/mcL (140-400); Red Blood Count 4.34 M/mcL (4.19-5.50); Red Cell Distribution Width 12.7 % (11.5-14.5); Segmented Neutrophils % 78.6 %
[2017-11-20] MEDS: *HR* Enoxaparin 40 MG/0.4 ML SYRINGE SQ SCH (05:45)
[2017-11-20] MEDS: Doxycycline 100 MG in 0.9 % Sodium Chloride Mini Bag 100 ML IVPB SCH (05:52)
[2017-11-20 07:58] VITALS: BP 111/69
[2017-11-20] MEDS ORDERED: predniSONE 20 MG TABLET PO SCH (08:00)
--- NOTE | 2017-11-20 10:30 | Discharge Summary ---
Date of Encounter: 11/20/17 Time of Encounter: 10:05 - Discharge Diagnosis (1) Atypical pneumonia Priority: Primary Status: Acute (2) Acute exacerbation of chronic obstructive airways disease Priority: Primary Status: Acute (3) Epigastric discomfort Priority: Secondary Status: Resolved (4) Tobacco abuse Priority: Secondary Status: Acute (5) DVT prophylaxis Priority: Secondary Status: Acute - Discharge Medications Prescriptions: Doxycycline 100 mg PO Q12HR #15 capsule Albuterol Sulfate [Albuterol Inhaler] 1 puff IH Q4H PRN #1 inhaler PRN Reason: Shortness Of Breath/Wheezing Budesonide/Formoterol 160/4.5 [Symbicort 160/4.5] 1 puff IH BIDR #1 hfa.aer.ad GuaiFENesin/Dextromethorphan [Gs Tussin Dm Max Liquid] 5 ml PO Q6H PRN #1 liquid PRN Reason: Cough Home Medications: Azithromycin [Zithromax] 250 mg PO DAILY #4 tablet 11/16/17 [Rx] Gabapentin [Neurontin] 300 mg PO DAILY PRN 11/16/17 [History] Albuterol Sulfate [Albuterol Inhaler] 1 puff IH Q4H PRN #1 inhaler 11/20/17 [Rx] Budesonide/Formoterol 160/4.5 [Symbicort 160/4.5] 1 puff IH BIDR #1 hfa.aer.ad 11/20/17 [Rx] Doxycycline 100 mg PO Q12HR #15 capsule 11/20/17 [Rx] GuaiFENesin/Dextromethorphan [Gs Tussin Dm Max Liquid] 5 ml PO Q6H PRN #1 liquid 11/20/17 [Rx] predniSONE [PredniSONE] 60 mg PO DAILY@0800 tablet 11/20/17 [Rx] Allergies/Adverse Reactions: 3 Allergy/AdvReac Type Severity Reaction Status Date / Time No Known Allergies Allergy Verified 11/16/17 00:58 Procedures/tests Complete & Pending: Procedures Performed prior 72 hours Category Date Time Status CT chest wo con [CT] Routine Cat Scan 11/17/17 14:24 Completed EKG [ECG 12 lead ECG] [ECG] Stat Y 11/17/17 12:03 Completed Date of admission: 11/16/17 03:52 Primary care physician: Ella Hackett CNP Discharging clinician: Mary Lou Altamirano Anticipated date of discharge: 11/20/17 - Patient Status Disposition: Home, Self-Care Condition: Good Functional capacity at discharge: independent ambulation Overall status at discharge: patient is back to baseline - Discharge Instructions Follow Up With: Ella Hackett CNP [Primary Care Provider] - 12/03/17 9:50 am (Pulmonary web request sent for 3-4 weeks from 11/20/2017. ) Additional Instructions: Please follow up with your primary care physician within five days after your discharge from the hospital. Please follow up with pulmonology within three to four weeks after your discharge from the hospital. Ask your senior applications analyst about pulmonary function tests and repeat CT chest in 6-8weeks. Please continue oral steroids as prescribed. You will be on a long steroid taper starting with Prednisone 60mg once a day. continue oral antibiotics as prescribed Symticort 1 puff twice a day has been added to your home meds Albuterol inh as needed for shortness of breath has been added to your home meds Resume all other home meds as prescribed by your primary care physician. smoking cessation is recommended. - Diet and Activity Activity: increase activity as tolerated Diet: advance to your usual diet Hospital course: Mr. Hackett is a 62 year old male with PMH Of tobacco abuse, undiagnosed COPD who was admitted for acute respiratory distress secondary to COPD exacerbation and PNA. He was started on O2 supplementation, systemic steroids, abx, bronchodilator support. He was positive for Entero/Rhino virus. I had discussed patient's care with the senior applications analyst in regards to his senior living care. Long steroid taper is recommended. symbicort and albuterol are added to his home meds. Pt is no longer oxygen dependent and did not qualify on home oxygen. He is stable for discharge and will follow up with pulm and have outpatient PFTs. He is to continue po steroids and abx. He is to follow up with PCP after discharge. Pt demonstrates understanding of his diagnosis and agree with the discharge care and plan. - Time Spent with Patient Total time spent providing and/or coordinating discharge services: Greater than 30 minutes - Constitutional Vitals: Temp Pulse Resp BP Pulse Ox 97.5 F L 63 16 111/69 92 11/20/17 07:56 11/20/17 07:56 11/20/17 09:48 11/20/17 07:56 11/20/17 09:48 General appearance: Present: A&O X 3, no acute distress, answers questions appropriately - Head Head exam: Present: atraumatic, normocephalic - Eye Eye exam: Present: conjuntiva pink, sclera anicteric - Respiratory Respiratory exam: Absent: accessory muscle use, rales, respiratory distress, tachypnea Additional comments: equal air entry bilaterally - Cardiovascular Cardiovascular exam: Present: RRR, +S1, +S2. Absent: diastolic murmur, gallop, rubs, systolic murmur - GI/Abdominal GI/Abdominal exam: Present: normal bowel sounds, soft, no peritoneal signs. Absent: distended, tenderness - Extremities Exam Extremities exam: Present: warm, radial pulses palpable and symmetrical. Absent : calf tenderness, cyanotic, pedal edema - Neurological Exam Neurological exam: Present: alert, oriented X3 - Psychiatric Psychiatric exam: Present: normal affect, normal mood
[2017-11-20] MEDS ORDERED: Doxycycline 100 MG CAPSULE PO SCH (18:00)
== END 2017-11-20 11:10 | disposition home or self-care (01) | DRG 190 ==
LOC: EMEROO 00:57 → 2ANU 00:57 → SUATTDRO 03:52 → 2ANU 04:10
PROVIDERS: ADMIT Internal Medicine Hematology & Oncology; ATTEND Internal Medicine